=== PATIENT | female | born 1980 | race Caucasian/White ===

== ENCOUNTER 2020-05-04 18:12 | Emergency (ER) | payer SELFPAY ==
[~2020-05-04] VITALS: Ht 160 cm; Wt 54.5 kg
[~2020-05-04 18:12] MED LIST: ATOM40CA PO; METH-37 PO; NAPR-683 PO
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
[2020-05-04] MEDS ORDERED: NAPR-682 PO (19:39)
[2020-05-04] MEDS ORDERED: HYDR-3164 PO (19:39)
[2020-05-04 19:45] VITALS: BP 154/90
== END 2020-05-04 19:45 | disposition home or self-care (01) ==
LOC: ER 18:12
DX: S22.32XA Fracture of one rib, left side, initial encounter for closed fracture (principal); R05 Cough; F17.200 Nicotine dependence, unspecified, uncomplicated; F12.90 Cannabis use, unspecified, uncomplicated; G89.29 Other chronic pain; Z98.890 Other specified postprocedural states; X50.0XXA Overexertion from strenuous movement or load, initial encounter; Y93.89 Activity, other specified; Y92.89 Other specified places as the place of occurrence of the external cause; Y99.8 Other external cause status
CPT/HCPCS: 71101; 99283

== ENCOUNTER 2020-06-01 15:11 | Emergency (ER) | payer SELFPAY ==
[~2020-06-01] VITALS: Ht 160 cm; Wt 58.6 kg
[~2020-06-01 15:11] MED LIST changes: +HYDR-3164 PO; +NAPR-682 PO
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
[2020-06-01 18:22] LABS: BASO # 0.1 x10^3/uL (0.0-0.2); BASO % 1 % (0-3); EOS # 0.2 x10^3/uL (0.0-0.7); EOS % 2 % (0-3); LYMPH # 1.9 x10^3/uL (1.0-4.8); LYMPH % 21 % (24-48); MEAN CORPUSCULAR HEMOGLOBIN 32 pg (25-35); MEAN CORPUSCULAR HGB CONC 34 g/dL (31-37); MEAN CORPUSCULAR VOLUME 94 fL (79-100); MONO # 0.5 x10^3/uL (0.0-1.1); MONO % 5 % (0-9); NEUT # 6.7 x10^3/uL (1.8-7.7); NEUT % 72 % (31-73); PLATELET COUNT 522 x10^3/uL (140-400); RED BLOOD COUNT 4.05 x10^6/uL (3.50-5.40); RED CELL DISTRIBUTION WIDTH 12.5 % (11.5-14.5); WHITE BLOOD COUNT 9.4 x10^3/uL (4.0-11.0)
[2020-06-01 18:33] LABS: PROTHROMBIN TIME PATIENT 12.5 SEC (11.7-14.0)
[2020-06-01 18:37] LABS: D-DIMER 0.62 ug/mlFEU (0.00-0.50)
[2020-06-01 18:38] LABS: CALCIUM 7.7 mg/dL (8.5-10.1); CREATININE 0.4 mg/dL (0.6-1.0); GFR 179.6; POTASSIUM 4.2 mmol/L (3.5-5.1)
--- NOTE | 2020-06-01 18:42 | EKG ---
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
[2020-06-01 18:45] LABS: ALBUMIN 1.5 g/dL (3.4-5.0); ALBUMIN/GLOBULIN RATIO 0.7 (1.0-1.7); TOTAL BILIRUBIN 0.1 mg/dL (0.2-1.0); TOTAL PROTEIN 3.8 g/dL (6.4-8.2)
[2020-06-01] MEDS ORDERED: IOHEXOL 350 MG/ML 100 ML VIAL. IV ONE (20:30)
--- NOTE | 2020-06-01 20:38 | RAD ---
Examination: Bilateral venous Doppler Indication: Leg swelling Technique: Ultrasound evaluation of the bilateral lower extremities was performed from the groin to the upper calf with gandhi scale, spectral and color doppler evaluation. Comparison: None Findings: There is normal venous flow and compressibility of bilateral common femoral veins, femoral veins, popliteal veins, and visualized proximal calf veins. Incidentally noted lymph node in the right inguinal region with fatty hilum. Impression: No evidence for deep vein thrombosis of bilateral lower extremities from the level of the calf veins to the groins. Electronically signed by: Austin Skinner MD (06/01/2020 8:36 PM) [facility]
[2020-06-01] MEDS ORDERED: fentaNYL PF VIAL 100 MCG/2 ML VIAL IVP ONE (21:00)
[2020-06-01] MEDS ORDERED: HYDR-3164 PO (21:01)
[2020-06-01 21:16] VITALS: BP 161/67
== END 2020-06-01 21:18 | disposition home or self-care (01) ==
LOC: ER 15:11
DX: M79.604 Pain in right leg (principal); M79.605 Pain in left leg; R07.2 Precordial pain; R06.02 Shortness of breath; M79.672 Pain in left foot; M79.671 Pain in right foot; R05 Cough; R09.81 Nasal congestion; G89.29 Other chronic pain; F17.200 Nicotine dependence, unspecified, uncomplicated; Z98.51 Tubal ligation status
CPT/HCPCS: 36415; 71045; 73590; 73630; 80053; 83880; 84484; 85025; 85379; 85610; 85730; 93005; 93970; 96374; 99285; J3010

== ENCOUNTER 2020-09-24 15:30 | Emergency (ER) | payer SELFPAY | END 2020-09-24 16:08 | disposition left against medical advice (07) | LOC: ER 15:30 | DX: T63.391A Toxic effect of venom of other spider, accidental (unintentional), initial encounter (principal); Y92.89 Other specified places as the place of occurrence of the external cause; Z53.21 Procedure and treatment not carried out due to patient leaving prior to being seen by health care provider ==

== ENCOUNTER 2020-12-19 02:13 | Emergency (ER) | payer SELFPAY ==
[~2020-12-19] VITALS: Ht 160 cm; Wt 54.5 kg
[2020-12-19 02:34] LABS: BILIRUBIN,URINE NEGATIVE (NEG); CLARITY,URINE CLEAR; COLOR,URINE YELLOW; NITRITE,URINE NEGATIVE (NEG); PH,URINE 6.5 (<5.0-8.0); PROTEIN,URINE NEGATIVE (NEG-TRACE)
[2020-12-19] MEDS ORDERED: IV NORMAL SALINE 1000ML BAG 1,000 ML IV ONE (02:45)
[2020-12-19 02:47] LABS: BACTERIA,URINE FEW /HPF (0-FEW)
[2020-12-19 02:51] LABS: BASO % 1 % (0-3); EOS # 0.1 x10^3/uL (0.0-0.7); EOS % 2 % (0-3); HEMATOCRIT 35.4 % (36.0-47.0); HEMOGLOBIN 12.2 g/dL (12.0-15.5); LYMPH # 1.7 x10^3/uL (1.0-4.8); LYMPH % 36 % (24-48); MEAN CORPUSCULAR HEMOGLOBIN 32 pg (25-35); MEAN CORPUSCULAR HGB CONC 34 g/dL (31-37); MEAN CORPUSCULAR VOLUME 93 fL (79-100); MONO # 0.4 x10^3/uL (0.0-1.1); MONO % 8 % (0-9); NEUT # 2.5 x10^3/uL (1.8-7.7); NEUT % 54 % (31-73); PLATELET COUNT 376 x10^3/uL (140-400); RED BLOOD COUNT 3.82 x10^6/uL (3.50-5.40); RED CELL DISTRIBUTION WIDTH 12.2 % (11.5-14.5); WHITE BLOOD COUNT 4.7 x10^3/uL (4.0-11.0)
[2020-12-19 03:03] LABS: BARBITURATES NEG (NEG); BENZODIAZEPINES NEG (NEG); CANNABINOIDS POS (NEG); COCAINE NEG (NEG); METHADONE NEG (NEG); OPIATES NEG (NEG); PHENCYCLIDINE NEG (NEG)
[2020-12-19 03:03] LABS: CALCIUM 8.5 mg/dL (8.5-10.1); CREATININE 0.6 mg/dL (0.6-1.0); GFR 111.9; POTASSIUM 3.3 mmol/L (3.5-5.1)
[2020-12-19 03:04] LABS: AMPHETAMINE/METHAMPHETAMINE POS (NEG)
[2020-12-19 03:09] LABS: ALBUMIN 3.5 g/dL (3.4-5.0); ALBUMIN/GLOBULIN RATIO 1.1 (1.0-1.7); TOTAL BILIRUBIN 0.2 mg/dL (0.2-1.0); TOTAL PROTEIN 6.8 g/dL (6.4-8.2)
[2020-12-19 03:22] VITALS: BP 126/82
--- NOTE | 2020-12-19 03:24 | PHYS DOC ---
Past Medical History Past Medical History: Hypertension, UTI, Other Additional Past Medical Histor: hx of meth& rx drug abuse, adhd, chronic wrist pain Past Surgical History: , Tubal ligation, Other Additional Past Surgical Histo: rt wrist surgery x 3 Smoking Status: Current Every Day Smoker Additional Information: 0.5 ppd Alcohol Use: Occasionally Drug Use: Amphetamine, Cocaine, Marijuana, Methamphetamine General Adult EDM: Chief Complaint: ABDOMINAL PAIN IN HPI: HPI: Patient is a 40-year-old female presenting for vaginal spotting. Reports this is a chronic process, states this has been going on for past 6 months. Reports light spotting but has been changing her tampon at least hourly for the past we ek. Reports she has proximately 5 months . Also reports that she was seen at [facility] ER approximately 1 month ago and had comprehensive diagnostic work- up performed involving sonogram that showed she was not however, "they are wrong, I know I am. I need to know how far along I am so I could stop meth and stuff". No fever, dizziness, chest pain, shortness of breath, denies abdominal pain, no dysuria. States an unknown male individual has been sleeping with her while she has been sleeping without concern and she needs to know if he is the father. States she is , does not have any prior children as they have all been given up for adoption. First child was delivered via vaginal delivery, subsequent x2 children were born via , all were born at term Review of Systems: Review of Systems: Fourteen body systems of review of systems have been reviewed. See HPI for pertinent positives and negative responses, other posey all other systems are negative, non-pertinent or non-contributory Heart Score: C/O Chest Pain: No Risk Factors: Risk Factors: DM, Current or recent (<one month) smoker, HTN, HLP, family history of CAD, obesity. Risk Scores: Score 0 - 3: 2.5% MACE over next 6 weeks - Discharge Home Score 4 - 6: 20.3% MACE over next 6 weeks - Admit for Clinical Observation Score 7 - 10: 72.7% MACE over next 6 weeks - Early Invasive Strategies Current Medications: Current Medications Medications (Trade) Dose Ordered Sig/Swathi Start Time Stop Time Status Last Admin Dose Admin Sodium Chloride 1,000 ml @ 100 mls/hr 1X ONCE 3/30/21 02:45 12/19/20 12:44 12/19/20 02:45 100 MLS/HR Allergies: Allergies: Allergies Coded Allergies Type Severity Reaction Last Updated Verified No Known Drug Allergies 06/01/20 No Physical Exam: PE: Constitutional: Well developed, well nourished, moderately distressed, appears intoxicated/under the influence of methamphetamine HENT: Normocephalic, atraumatic, bilateral external ears normal, oropharynx dry with poor dentition, no oral exudates, nose normal. Eyes: PERRLA, EOMI, conjunctiva normal, no discharge. Neck: Normal range of motion, no tenderness, supple, no stridor. Cardiovascular: Heart rate regular, sinus rhythm, no murmurs rubs or gallops Lungs & Thorax: Bilateral breath sounds clear to auscultation Abdomen: Bowel sounds normal, soft, no tenderness, no masses, no pulsatile masses. Nonsurgical abdomen, no peritoneal signs Skin: Warm, dry, no erythema, no rash. Back: No tenderness, no CVA tenderness. Extremities: No tenderness, no cyanosis, no clubbing, ROM intact, no edema. Neurologic: Alert and oriented X 3, grossly normal motor & sensory function, no focal deficits noted. Psychologic: Affect normal, judgement normal, mood normal. Current Patient Data: Labs: Laboratory Tests Test 12/19/20 02:25 12/19/20 02:45 Urine Collection Type Void Urine Color Yellow Urine Clarity Clear Urine pH 6.5 (<5.0-8.0) Urine Specific [place] >=1.030 (1.000-1.030) Urine Protein Negative mg/dL (NEG-TRACE) Urine Glucose (UA) Negative mg/dL (NEG) Urine Ketones (Stick) Negative mg/dL (NEG) Urine Blood Negative (NEG) Urine Nitrite Negative (NEG) Urine Bilirubin Negative (NEG) Urine Urobilinogen Dipstick 1.0 mg/dL (0.2 mg/dL) Urine Leukocyte Esterase Negative (NEG) Urine RBC 3-5 /HPF (0-2) Urine WBC 1-4 /HPF (0-4) Urine Squamous Epithelial Cells Few /LPF Urine Bacteria Few /HPF (0-FEW) Urine Mucus Mod /LPF POC Urine HCG, Qualitative Hcg negative (Negative) Urine Opiates Screen Neg (NEG) Urine Methadone Screen Neg (NEG) Urine Barbiturates Neg (NEG) Urine Phencyclidine Screen Neg (NEG) Urine Amphetamine/Methamphetamine Pos (NEG) Urine Benzodiazepines Screen Neg (NEG) Urine Cocaine Screen Neg (NEG) Urine Cannabinoids Screen Pos (NEG) Urine Ethyl Alcohol Neg (NEG) White Blood Count 4.7 x10^3/uL (4.0-11.0) Red Blood Count 3.82 x10^6/uL (3.50-5.40) Hemoglobin 12.2 g/dL (12.0-15.5) Hematocrit 35.4 % (36.0-47.0) L Mean Corpuscular Volume 93 fL (79-100) Mean Corpuscular Hemoglobin 32 pg (25-35) Mean Corpuscular Hemoglobin Concent 34 g/dL (31-37) Red Cell Distribution Width 12.2 % (11.5-14.5) Platelet Count 376 x10^3/uL (140-400) Neutrophils (%) (Auto) 54 % (31-73) Lymphocytes (%) (Auto) 36 % (24-48) Monocytes (%) (Auto) 8 % (0-9) Eosinophils (%) (Auto) 2 % (0-3) Basophils (%) (Auto) 1 % (0-3) Neutrophils # (Auto) 2.5 x10^3/uL (1.8-7.7) Lymphocytes # (Auto) 1.7 x10^3/uL (1.0-4.8) Monocytes # (Auto) 0.4 x10^3/uL (0.0-1.1) Eosinophils # (Auto) 0.1 x10^3/uL (0.0-0.7) Basophils # (Auto) 0.0 x10^3/uL (0.0-0.2) Maternal Serum HCG Beta Subunit < 1 mIU/mL (0-5) Sodium Level 144 mmol/L (136-145) Potassium Level 3.3 mmol/L (3.5-5.1) L Chloride Level 107 mmol/L (98-107) Carbon Dioxide Level 26 mmol/L (21-32) Anion Gap 11 (6-14) Blood Urea Nitrogen 20 mg/dL (7-20) Creatinine 0.6 mg/dL (0.6-1.0) Estimated GFR (Cockcroft-Gault) 111.9 BUN/Creatinine Ratio 33 (6-20) H Glucose Level 103 mg/dL (70-99) H Calcium Level 8.5 mg/dL (8.5-10.1) Total Bilirubin 0.2 mg/dL (0.2-1.0) Aspartate Amino Transferase (AST) 21 U/L (15-37) Alanine Aminotransferase (ALT) 35 U/L (14-59) Alkaline Phosphatase 122 U/L (46-116) H Total Protein 6.8 g/dL (6.4-8.2) Albumin 3.5 g/dL (3.4-5.0) Albumin/Globulin Ratio 1.1 (1.0-1.7) Laboratory Tests 12/19/20 02:45 Laboratory Tests 12/19/20 02:45 Vital Signs: Vital Signs Date Time Temp Pulse Resp B/P (MAP) Pulse Ox O2 Delivery O2 Flow Rate FiO2 12/19/20 02:51 98.2 90 20 151/91 (111) 100 Room Air 98.2 EKG: EKG: [] Radiology/Procedures: Radiology/Procedures: [] Course & Med Decision Making: Course & Med Decision Making Hypertensive otherwise hemodynamically stable. Initially concerning for vaginal bleeding and patient; physical exam and subsequent diagnostic work-up showed patient was in fact not I offered patient pelvic examination for visual evaluation and testing for other STDs etc. but patient deferred Patient voicing that she is wanting to leave. I discussed need for continued work-up while in ER but she was adamant about leaving. Despite being under the influence of methamphetamine, she has full decision and was able to voice risk benefits of leaving without obtaining pelvic exam etc. Patient advised to establish with local PCP and/or seek continued medical care at local health department. Strict return precautions were discussed with good understanding by patient. All questions and concerns addressed prior to ER departure Luana Disclaimer: Dragjacques Disclaimer: This electronic medical record was generated, in whole or in part, using a voice recognition dictation system. Departure Departure Impression: Primary Impression: Abdominal pain Additional Impressions: Vaginal bleeding Polysubstance abuse Disposition: 01 DC HOME SELF CARE/HOMELESS Condition: STABLE Referrals: NO PCP (PCP) Additional Instructions: As discussed prior to ER departure, there is no emergent and/or surgical findings based on your comprehensive work-up in the ER today. You are not . Your blood levels were fine, there is no emergent need for transabdominal/transvaginal ultrasound. You were offered a pelvic exam to visualize the area and check for conditions/infections that could be causing y our vaginal bleeding complaints but you deferred. As such, it is vital that you follow-up with either your primary care physician or local health department to follow-up on this. You would also benefit from doing this to ensure you are up-to-date on your Pap smear among other screening exams pertinent to age and medical conditions. As discussed, it is in your best interest to avoid ongoing polysubstance abuse. If any concerning signs or symptoms present prior to outpatient follow-up please do not hesitate to contact our ER and/or represent for repeat evaluation. It was a pleasure to take care of you and I wish you the best going forward GINGER CARRANZA DO Dec 19, 2020 03:24
== END 2020-12-19 03:32 | disposition home or self-care (01) ==
LOC: ER 02:13
DX: N89.8 Other specified noninflammatory disorders of vagina (principal); R10.9 Unspecified abdominal pain; F19.10 Other psychoactive substance abuse, uncomplicated; I10 Essential (primary) hypertension; F17.200 Nicotine dependence, unspecified, uncomplicated; F14.90 Cocaine use, unspecified, uncomplicated; F12.90 Cannabis use, unspecified, uncomplicated; Z98.51 Tubal ligation status; Z98.890 Other specified postprocedural states
CPT/HCPCS: 36415; 80053; 80307; 81001; 81025; 84702; 85025; 86850; 86900; 86901; 96360; 99283; J7030

== ENCOUNTER 2021-01-15 18:11 | Emergency (ER) | payer SELFPAY | END 2021-01-15 20:06 | disposition left against medical advice (07) | LOC: ER 18:11 | DX: N89.8 Other specified noninflammatory disorders of vagina (principal); Z53.21 Procedure and treatment not carried out due to patient leaving prior to being seen by health care provider ==

== ENCOUNTER 2021-01-23 10:36 | Emergency (ER) | payer SELFPAY ==
[~2021-01-23] VITALS: Ht 160 cm; Wt 51.5 kg
[2021-01-23 11:29] LABS: BILIRUBIN,URINE NEGATIVE (NEG); CLARITY,URINE CLEAR; COLOR,URINE YELLOW; NITRITE,URINE NEGATIVE (NEG); PH,URINE 7.5 (<5.0-8.0); PROTEIN,URINE NEGATIVE (NEG-TRACE)
[2021-01-23 11:39] LABS: BACTERIA,URINE FEW /HPF (0-FEW); RBC,URINE OCC /HPF (0-2)
--- NOTE | 2021-01-23 12:20 | ED.ADGEN ---
Past Medical History Past Medical History: Hypertension, UTI, Other Additional Past Medical Histor: hx of meth& rx drug abuse, adhd, chronic wrist pain Past Surgical History: , Tubal ligation, Other Additional Past Surgical Histo: rt wrist surgery x 3 Smoking Status: Current Every Day Smoker Alcohol Use: Occasionally Drug Use: Amphetamine, Cocaine, Marijuana, Methamphetamine General Adult EDM: Chief Complaint: VAGINAL PROBLEM HPI: HPI: Patient is a 40-year-old female past medical history of polysubstance abuse who presents to the emergency room stating that she has sure that she is . She states that she has taken test in the past but they have been negative. She states she can feel something moving in her abdomen and that her abdomen is distended. Patient states that she does not want to answer any questions. She states that there is no way she cannot be . She then mentions may be having cancer if she is not . She then goes back to insisting she is because she can feel baby move. Review of Systems: Review of Systems: Complete ROS is negative unless otherwise documented in HPI Allergies: Allergies: Allergies Coded Allergies Type Severity Reaction Last Updated Verified No Known Drug Allergies 06/01/20 No Physical Exam: PE: General: Awake, alert, NAD. Well Nourished, well hydrated. Cooperative HEENT: Atraumatic, EOMI, PERRL, airway patent, moist oral mucosa Neck: Supple, trachea midline Respiratory: CTA bilaterally, normal effort, no wheezing/crackles CV: RRR, no murmur, cap refill <2 GI: Soft, mild distention, nontender, no masses, uterus not palpable MSK: No obvious deformities Skin: Warm, dry, intact Neuro: A&O x3, speech NL, sensory and motor grossly intact, no focal deficits Psych: Paranoid, not suicidal or homicidal Current Patient Data: Labs: Laboratory Tests Test 01/23/21 11:00 01/23/21 11:05 Urine Collection Type Unknown Urine Color Yellow Urine Clarity Clear Urine pH 7.5 (<5.0-8.0) Urine Specific [place] 1.025 (1.000-1.030) Urine Protein Negative mg/dL (NEG-TRACE) Urine Glucose (UA) Negative mg/dL (NEG) Urine Ketones (Stick) Negative mg/dL (NEG) Urine Blood Negative (NEG) Urine Nitrite Negative (NEG) Urine Bilirubin Negative (NEG) Urine Urobilinogen Dipstick 1.0 mg/dL (0.2 mg/dL) Urine Leukocyte Esterase Small (NEG) Urine RBC Occ /HPF (0-2) Urine WBC 5-10 /HPF (0-4) Urine Squamous Epithelial Cells Mod /LPF Urine Bacteria Few /HPF (0-FEW) Urine Mucus Mod /LPF POC Urine HCG, Qualitative Hcg negative (Negative) Vital Signs: Vital Signs Date Time Temp Pulse Resp B/P (MAP) Pulse Ox O2 Delivery O2 Flow Rate FiO2 01/23/21 12:45 106 132/77 (95) 98 Room Air 01/23/21 11:32 98.2 18 98.2 EKG: EKG: [] Heart Score: C/O Chest Pain: N/A Risk Factors: Risk Factors: DM, Current or recent (<one month) smoker, HTN, HLP, family history of CAD, obesity. Risk Scores: Score 0 - 3: 2.5% MACE over next 6 weeks - Discharge Home Score 4 - 6: 20.3% MACE over next 6 weeks - Admit for Clinical Observation Score 7 - 10: 72.7% MACE over next 6 weeks - Early Invasive Strategies Radiology/Procedures: Radiology/Procedures: [] Course & Med Decision Making: Course & Med Decision Making Pertinent Labs and Imaging studies reviewed. (See chart for details) Patient is a 40-year-old female who presents to the emergency room complaining of having abdominal distention and concerned that she is . Her uterus is not palpable on exam. test is negative at this time. It is unlik shell that patient is given these exam findings. Patient is paranoid and history is significantly limited due to patient's mental status. Given this will order CT to rule out any signs of mass given her mild distention. Patient was offered resources but declines at this time. CT does not show any signs of a mass. Patient is stable at this time and will be discharged. Patient's test results and vitals while in the ED were fully reviewed and discussed with the patient. Patient is stable and at this time does not need admission to the hospital. We have discussed strict return precautions and the importance of following up with their Primary Care Physician. Patient stated understanding and was given an opportunity to ask any questions. Patient is in agreement with plan. Luana Disclaimer: Dragon Disclaimer: This electronic medical record was generated, in whole or in part, using a voice recognition dictation system. Departure Departure Impression: Primary Impression: Feared condition not demonstrated Disposition: 01 HOME / SELF CARE / HOMELESS Condition: STABLE Referrals: NO PCP (PCP) Patient Instructions: Abdominal Pain DOT EATON MD January 23, 2021 12:20
[2021-01-23 13:14] VITALS: BP 127/71
--- NOTE | 2021-01-23 13:19 | RAD ---
EXAM: CT Abdomen and Pelvis without IV contrast CLINICAL HISTORY: Reason: abd distention, pain / Spl. Instructions: / History: . COMPARISON: none TECHNIQUE: Helical CT of the abdomen and pelvis without intravenous contrast. Axial, coronal and sagi ttal reformatted images were generated. PQRS compliance statement - One or more of the following individualized dose reduction techniques wer e utilized for this study: 1. Automated exposure control 2. Adjustment of the mA and/or kV according to patient size 3. Use of iterative reconstruction technique FINDINGS: Lack of intravenous contrast limits evaluation of solid organs, vasculature, and lymph nodes. Lower chest: Lung bases are clear. Abdomen and Pelvis: No focal liver lesion. Gallbladder is normal. Spleen is unremarkable. Adrenal glands and pancreas are normal in appearance. No focal renal lesion. No hydronephrosis. No hydroureter. Bladder is grossly unremarkable. Endometrial prominence can be correlated with phase of menstrual cycle. Appendix is normal. Large vol ume colonic stool content is seen. No small or large bowel dilatation. No bowel obstruction. No abdominal or pelvic ascites. No abdominal or pelvic lymphadenopathy. Bones: Trace height loss of the T12 vertebral body, age-indeterminate compression fracture or physiologic we dging. IMPRESSION: 1. Large volume colonic stool content is seen with constipation. No bowel obstruction. 2. Trace height loss of the T12 vertebral body, age-indeterminate compression fracture or physiologi c wedging. Electronically signed by: Austin Skinner MD (01/23/2021 1:17 PM) [id number]
== END 2021-01-23 13:46 | disposition home or self-care (01) ==
LOC: ER 10:36
DX: R14.0 Abdominal distension (gaseous) (principal); Z71.1 Person with feared health complaint in whom no diagnosis is made; I10 Essential (primary) hypertension; F17.200 Nicotine dependence, unspecified, uncomplicated; Z98.51 Tubal ligation status
CPT/HCPCS: 74176; 81001; 81025; 87086; 99285-25

== ENCOUNTER 2021-02-27 12:22 | Emergency (ER) | payer SELFPAY ==
[~2021-02-27] VITALS: Ht 160 cm; Wt 55.0 kg
[2021-02-27 12:25] VITALS: BP 118/68
[2021-02-27] MEDS ORDERED: IV NORMAL SALINE 1000ML BAG 1,000 ML IV ONE (12:30)
--- NOTE | 2021-02-27 12:30 | ED.ADGEN ---
Past Medical History Past Medical History: Hypertension, UTI, Other Additional Past Medical Histor: hx of meth& rx drug abuse, adhd, chronic wrist pain Past Surgical History: , Tubal ligation, Other Additional Past Surgical Histo: rt wrist surgery x 3 Smoking Status: Current Every Day Smoker Alcohol Use: Occasionally Drug Use: Amphetamine, Cocaine, Marijuana, Methamphetamine General Adult HPI: HPI: Patient is a 40 year old female brought in by EMS after being found in [facility] front lawn. Unknown how long she was down. Patient states she might have been walking her dog but there was no dog onsite. Patient is a very poor historian. Patient states she woke up and was walking the dog and passed out for hours prior to arrival. Patient says last thing she members feeling lightheaded and sitting down and then passing out. States she has not eaten and drinking for about 1 day. Denies any drugs or alcohol. Denies any chest pain, recent illness. Review of Systems: Review of Systems: All other systems within normal limits except for as noted in the HPI Current Medications: Current Medications Medications (Trade) Dose Ordered Sig/Swathi Start Time Stop Time Status Last Admin Dose Admin Ceftriaxone Sodium (Rocephin) 1 gm 1X ONCE 02/27/21 13:45 02/27/21 13:46 DC 02/27/21 15:23 1 GM Sodium Chloride 1,000 ml @ 1,000 mls/hr 1X ONCE 02/27/21 12:30 02/27/21 13:29 DC 02/27/21 12:53 1,000 MLS/HR Allergies: Allergies: Allergies Coded Allergies Type Severity Reaction Last Updated Verified No Known Drug Allergies 06/01/20 No Physical Exam: PE: Constitutional: Well developed, well nourished, no acute distress, non-toxic appearance. [] HENT: Normocephalic, atraumatic, bilateral external ears normal, nose normal. [] Eyes: PERRLA, conjunctiva normal, no discharge. [] Neck: No rigidity, supple, no stridor. [] Cardiovascular: Regular rate and rhythm, brisk cap refill [] Lungs & Thorax: Non labored symmetric respirations, no tachypnea or respiratory distress [] Abdomen: Soft, nondistended. Skin: Warm, dry, no erythema, no rash. [] Back: Unremarkable Extremities: No deformities, range of motion grossly intact, no lower extremity edema [] Neurologic: Alert and oriented X 3, no focal deficits noted. [] Psychologic: Affect normal, judgement normal, mood normal. [] Current Patient Data: Labs: Laboratory Tests Test 02/27/21 12:28 02/27/21 12:55 02/27/21 13:02 02/27/21 15:20 White Blood Count 5.6 x10^3/uL (4.0-11.0) Red Blood Count 3.65 x10^6/uL (3.50-5.40) Hemoglobin 11.8 g/dL (12.0-15.5) L Hematocrit 33.6 % (36.0-47.0) L Mean Corpuscular Volume 92 fL (79-100) Mean Corpuscular Hemoglobin 32 pg (25-35) Mean Corpuscular Hemoglobin Concent 35 g/dL (31-37) Red Cell Distribution Width 11.8 % (11.5-14.5) Platelet Count 341 x10^3/uL (140-400) Neutrophils (%) (Auto) 64 % (31-73) Lymphocytes (%) (Auto) 28 % (24-48) Monocytes (%) (Auto) 8 % (0-9) Eosinophils (%) (Auto) 1 % (0-3) Basophils (%) (Auto) 0 % (0-3) Neutrophils # (Auto) 3.5 x10^3/uL (1.8-7.7) Lymphocytes # (Auto) 1.5 x10^3/uL (1.0-4.8) Monocytes # (Auto) 0.4 x10^3/uL (0.0-1.1) Eosinophils # (Auto) 0.0 x10^3/uL (0.0-0.7) Basophils # (Auto) 0.0 x10^3/uL (0.0-0.2) Sodium Level 146 mmol/L (136-145) H Potassium Level 3.6 mmol/L (3.5-5.1) Chloride Level 110 mmol/L (98-107) H Carbon Dioxide Level 27 mmol/L (21-32) Anion Gap 9 (6-14) Blood Urea Nitrogen 17 mg/dL (7-20) Creatinine 0.7 mg/dL (0.6-1.0) Estimated GFR (Cockcroft-Gault) 93.6 BUN/Creatinine Ratio 24 (6-20) H Glucose Level 82 mg/dL (70-99) Lactic Acid Level 0.7 mmol/L (0.4-2.0) Calcium Level 8.9 mg/dL (8.5-10.1) Magnesium Level 2.0 mg/dL (1.8-2.4) Total Bilirubin 0.2 mg/dL (0.2-1.0) Aspartate Amino Transferase (AST) 18 U/L (15-37) Alanine Aminotransferase (ALT) 26 U/L (14-59) Alkaline Phosphatase 104 U/L (46-116) Creatine Kinase 102 U/L (26-192) Troponin I Quantitative < 0.017 ng/mL (0.000-0.055) < 0.017 ng/mL (0.000-0.055) Total Protein 6.5 g/dL (6.4-8.2) Albumin 3.8 g/dL (3.4-5.0) Albumin/Globulin Ratio 1.4 (1.0-1.7) Urine Collection Type U cath Urine Color Yellow Urine Clarity Cloudy Urine pH 5.5 (<5.0-8.0) Urine Specific [place] 1.020 (1.000-1.030) Urine Protein Negative mg/dL (NEG-TRACE) Urine Glucose (UA) Negative mg/dL (NEG) Urine Ketones (Stick) Negative mg/dL (NEG) Urine Blood Small (NEG) Urine Nitrite Negative (NEG) Urine Bilirubin Negative (NEG) Urine Urobilinogen Dipstick 0.2 mg/dL (0.2 mg/dL) Urine Leukocyte Esterase Large (NEG) Urine RBC Field obscured /HPF (0-2) Urine WBC >40 /HPF (0-4) Urine Bacteria Many /HPF (0-FEW) Urine Opiates Screen Neg (NEG) Urine Methadone Screen Neg (NEG) Urine Barbiturates Neg (NEG) Urine Phencyclidine Screen Neg (NEG) Urine Amphetamine/Methamphetamine Pos (NEG) Urine Benzodiazepines Screen Neg (NEG) Urine Cocaine Screen Neg (NEG) Urine Cannabinoids Screen Pos (NEG) Urine Ethyl Alcohol Neg (NEG) POC Urine HCG, Qualitative Hcg negative (Negative) Laboratory Tests 02/27/21 12:28 Laboratory Tests 02/27/21 12:28 Vital Signs: Vital Signs Date Time Temp Pulse Resp B/P (MAP) Pulse Ox O2 Delivery O2 Flow Rate FiO2 02/27/21 12:25 98.8 101 14 118/68 (85) 98 Room Air 98.8 EKG: EKG: Sinus rhythm, heart rate 96 bpm, 1 PVC, normal axis, no ST elevation depression, normal intervals. [] Heart Score: C/O Chest Pain: No Risk Factors: Risk Factors: DM, Current or recent (<one month) smoker, HTN, HLP, family history of CAD, obesity. Risk Scores: Score 0 - 3: 2.5% MACE over next 6 weeks - Discharge Home Score 4 - 6: 20.3% MACE over next 6 weeks - Admit for Clinical Observation Score 7 - 10: 72.7% MACE over next 6 weeks - Early Invasive Strategies Radiology/Procedures: Radiology/Procedures: [] Course & Med Decision Making: Course & Med Decision Making Pertinent Labs and Imaging studies reviewed. (See chart for details) Patient slightly dehydrated and has dry mucous membranes, likely reason for passing out. No other acute emergent findings on exam. Patient awake alert oriented answering questions. [] Dragon Disclaimer: Dragon Disclaimer: This electronic medical record was generated, in whole or in part, using a voice recognition dictation system. Departure Departure Impression: Primary Impression: Polysubstance abuse Additional Impression: Passed out Disposition: HOME / SELF CARE / HOMELESS Condition: STABLE Referrals: NO PCP (PCP) Patient Instructions: Dehydration, Adult, [id number] Problem Qualifiers DAVE HARRIS MD Feb 27, 2021 12:30
[2021-02-27 12:37] LABS: BASO % 0 % (0-3); EOS % 1 % (0-3); HEMATOCRIT 33.6 % (36.0-47.0); HEMOGLOBIN 11.8 g/dL (12.0-15.5); LYMPH # 1.5 x10^3/uL (1.0-4.8); LYMPH % 28 % (24-48); MEAN CORPUSCULAR HEMOGLOBIN 32 pg (25-35); MEAN CORPUSCULAR HGB CONC 35 g/dL (31-37); MEAN CORPUSCULAR VOLUME 92 fL (79-100); MONO # 0.4 x10^3/uL (0.0-1.1); MONO % 8 % (0-9); NEUT # 3.5 x10^3/uL (1.8-7.7); NEUT % 64 % (31-73); PLATELET COUNT 341 x10^3/uL (140-400); RED BLOOD COUNT 3.65 x10^6/uL (3.50-5.40); RED CELL DISTRIBUTION WIDTH 11.8 % (11.5-14.5); WHITE BLOOD COUNT 5.6 x10^3/uL (4.0-11.0)
[2021-02-27 12:47] LABS: CALCIUM 8.9 mg/dL (8.5-10.1); CREATININE 0.7 mg/dL (0.6-1.0); GFR 93.6; POTASSIUM 3.6 mmol/L (3.5-5.1)
[2021-02-27 12:52] LABS: ALBUMIN 3.8 g/dL (3.4-5.0); ALBUMIN/GLOBULIN RATIO 1.4 (1.0-1.7); TOTAL BILIRUBIN 0.2 mg/dL (0.2-1.0); TOTAL PROTEIN 6.5 g/dL (6.4-8.2)
[2021-02-27 13:12] LABS: BILIRUBIN,URINE NEGATIVE (NEG); CLARITY,URINE CLOUDY; COLOR,URINE YELLOW; NITRITE,URINE NEGATIVE (NEG); PH,URINE 5.5 (<5.0-8.0); PROTEIN,URINE NEGATIVE (NEG-TRACE); UROBILINOGEN,URINE 0.2 mg/dL (0.2 mg/dL)
[2021-02-27 13:19] LABS: BACTERIA,URINE MANY /HPF (0-FEW); WBC,URINE >40 /HPF (0-4)
[2021-02-27 13:21] LABS: RBC,URINE FIELD OBSCURED /HPF (0-2)
[2021-02-27 13:22] LABS: BARBITURATES NEG (NEG); BENZODIAZEPINES NEG (NEG); CANNABINOIDS POS (NEG); COCAINE NEG (NEG); METHADONE NEG (NEG); OPIATES NEG (NEG); PHENCYCLIDINE NEG (NEG)
[2021-02-27 13:23] LABS: AMPHETAMINE/METHAMPHETAMINE POS (NEG)
[2021-02-27] MEDS ORDERED: cefTRIAXone IV Push 1 GM VIAL. IVP ONE (13:45)
--- NOTE | 2021-02-27 15:41 | EKG ---
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
== END 2021-02-27 16:37 | disposition home or self-care (01) ==
LOC: ER 12:22
DX: F19.10 Other psychoactive substance abuse, uncomplicated (principal); R55 Syncope and collapse; I10 Essential (primary) hypertension; F17.200 Nicotine dependence, unspecified, uncomplicated; F90.9 Attention-deficit hyperactivity disorder, unspecified type; G89.29 Other chronic pain; Z98.51 Tubal ligation status
CPT/HCPCS: 36415; 80053; 80307; 81001; 81025; 82550; 83605; 83735; 84484; 85025; 87086; 93005; 96361; 96374; 99284; J0696; J7030; 87077; 87186

== ENCOUNTER 2021-06-26 14:16 | Emergency (ER) | payer SELFPAY ==
[~2021-06-26] VITALS: Ht 160 cm; Wt 47.6 kg
[2021-06-26 15:25] VITALS: BP 126/71
[2021-06-26 15:53] LABS: BILIRUBIN,URINE NEGATIVE (NEG); CLARITY,URINE CLOUDY; COLOR,URINE YELLOW; NITRITE,URINE POSITIVE (NEG); PH,URINE 6.5 (<5.0-8.0); PROTEIN,URINE NEGATIVE (NEG-TRACE)
[2021-06-26] MEDS ORDERED: IV NORMAL SALINE 1000ML BAG 1,000 ML IV ONE (16:00)
--- NOTE | 2021-06-26 16:01 | PHYS DOC ---
Past Medical History Past Medical History: Hypertension, UTI, Other Additional Past Medical Histor: hx of meth& rx drug abuse, adhd, chronic wrist pain Past Surgical History: , Tubal ligation, Other Additional Past Surgical Histo: rt wrist surgery x 3 Smoking Status: Current Every Day Smoker Alcohol Use: Occasionally Drug Use: Amphetamine, Cocaine, Marijuana, Methamphetamine General Adult EDM: Chief Complaint: OTHER COMPLAINTS HPI: HPI: Patient is a 40 year old female who presents with multiple complaints. She was brought in by EMS after reportedly falling and hitting her forehead on the sidewalk. She reports that she "passed out" for an unknown amount of time. She denies chest pain, palpitations, dyspnea, abdominal pain, nausea vomiting. She repeatedly asks for food and drink. She also repeatedly states that she knows she is , despite having not missed any menstrual cycles. She repeatedly demands to be given a "blood test." She denies active abdominal pain, pelvic pain or any vaginal bleeding currently. She admits to using methamphetamines as recently as last night. She reports that she actually did not want to come to the emergency department, but a bystander called EMS, she was reportedly encouraged to come to the ER. She denies headache, dizziness, vertigo, vision changes, numbness or tingling, motor weakness. Review of Systems: Review of Systems: Constitutional: Denies fever or chills. [] Eyes: Denies change in visual acuity. [] HENT: Denies nasal congestion or sore throat. [] Respiratory: Denies cough or shortness of breath. [] Cardiovascular: Denies chest pain or edema. [] GI: Denies abdominal pain, nausea, vomiting, bloody stools or diarrhea. [] : Denies urinary symptoms. Denies current vaginal bleeding. Musculoskeletal: Denies back pain or joint pain. [] Integument: Denies rash. [] Neurologic: Denies headache, focal weakness or sensory changes. [] Psychiatric: Admits to anxiety and agitation. Admits to methamphetamine use. Denies SI or HI. Heart Score: C/O Chest Pain: No Risk Factors: Risk Factors: DM, Current or recent (<one month) smoker, HTN, HLP, family history of CAD, obesity. Risk Scores: Score 0 - 3: 2.5% MACE over next 6 weeks - Discharge Home Score 4 - 6: 20.3% MACE over next 6 weeks - Admit for Clinical Observation Score 7 - 10: 72.7% MACE over next 6 weeks - Early Invasive Strategies Current Medications: Current Medications Medications (Trade) Dose Ordered Sig/Swathi Start Time Stop Time Status Last Admin Dose Admin Sodium Chloride 1,000 ml @ 1,000 mls/hr 1X ONCE 06/26/21 16:00 06/26/21 16:59 Allergies: Allergies: Allergies Coded Allergies Type Severity Reaction Last Updated Verified No Known Drug Allergies 06/01/20 No Physical Exam: PE: Constitutional: Awake, alert, nontoxic, no acute distress. She is disheveled and agitated, and she appears much older than stated age. HENT: Normocephalic, atraumatic, bilateral external ears normal, TMs are clear bilaterally. No hemotympanum. No otorrhea. No epistaxis. No rhinorrhea. Oropharynx moist, no oral exudates, nose normal. No obvious acute dental trauma noted. Eyes: PERRL, EOMI, conjunctiva normal, no discharge. [] Neck: Normal range of motion, no tenderness, supple, no stridor. [] Cardiovascular:Heart rate regular rhythm, no murmur. +2 radial and PT pulses bilaterally. Lungs & Thorax: Bilateral breath sounds clear to auscultation [] Abdomen: Bowel sounds normal, soft, no tenderness, no masses, no pulsatile masses. [] Skin: Warm, dry, no erythema, no rash. [] Back: No tenderness, no CVA tenderness. [] Extremities: No tenderness, no cyanosis, no clubbing, ROM intact, no edema. [] Neurologic: Alert and oriented X 3, normal motor function, normal sensory function, no focal deficits noted. [] Psychologic: She is anxious and fairly agitated. She denies SI or HI. Intermittent mild to moderate psychomotor agitation. She is redirectable. Current Patient Data: Labs: Laboratory Tests Test 06/26/21 15:38 POC Urine HCG, Qualitative Hcg negative (Negative) EKG: EKG: EKG was read at 1551 Rhythm: Sinus Rate: 63 bpm [place]: normal No STEMI Radiology/Procedures: Radiology/Procedures: [] Course & Med Decision Making: Course & Med Decision Making Pertinent Labs and Imaging studies reviewed. (See chart for details) I saw and examined the patient. Her [id number] urine test is negative. She has a nonfocal neurologic exam. She is awake, alert, oriented x3. She denies SI or HI. She is increasing with agitation, and is demanding that the staff here check a "blood test." I had explained to her that I had ordered blood work, CT imaging studies. She adamantly refuses to stay for any further work-up, imaging or evaluation of any kind. She demands to leave immediately. She has no other physical complaints. She denies pain. She refused to have a cooperative for congenital discussion with the staff regarding her care. She was provided with an AMA form. It was reiterated to her several times that her urine test was in fact negative. She refused to acknowledge any attempts at further discussion or return precautions discussion. She chooses to leave AMA, and she will be allowed to do so. There is no indication that she should be held against her will at this time. She is told that she may return at any time if she so chooses. Luana Disclaimer: Luana Disclaimer: This electronic medical record was generated, in whole or in part, using a voice recognition dictation system. Departure Departure Impression: Primary Impression: Methamphetamine use Additional Impression: Fall Disposition: LEFT AGAINST MEDICAL ADVICE Condition: STABLE Referrals: NO PCP (PCP) Patient Instructions: Methamphetamine Abuse, Complications Additional Instructions: You may return to the ER at any time, for any reason. Please return for any emergency condition. Please follow up with a primary care physician. RENETTA DIAS DO Jun 26, 2021 16:01
[2021-06-26 16:04] LABS: BACTERIA,URINE MANY /HPF (0-FEW); RBC,URINE 0 /HPF (0-2); TRICHOMONAS,URINE PRESENT; WBC,URINE 20-40 /HPF (0-4)
[2021-06-26 16:13] LABS: BARBITURATES NEG (NEG); BENZODIAZEPINES NEG (NEG); CANNABINOIDS POS (NEG); COCAINE NEG (NEG); METHADONE NEG (NEG); OPIATES NEG (NEG); PHENCYCLIDINE NEG (NEG)
[2021-06-26 16:18] LABS: AMPHETAMINE/METHAMPHETAMINE POS (NEG)
--- NOTE | 2021-06-26 16:20 | EKG ---
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
== END 2021-06-26 16:18 | disposition left against medical advice (07) ==
LOC: ER 14:16
DX: S09.90XA Unspecified injury of head, initial encounter (principal); F15.90 Other stimulant use, unspecified, uncomplicated; I10 Essential (primary) hypertension; F17.200 Nicotine dependence, unspecified, uncomplicated; G89.29 Other chronic pain; W18.39XA Other fall on same level, initial encounter; Y93.89 Activity, other specified; Y92.89 Other specified places as the place of occurrence of the external cause; Y99.8 Other external cause status
CPT/HCPCS: 80307; 81001; 81025; 87086; 93005; 99284